=== PATIENT | male | born 1945 | race Caucasian/White ===

== ENCOUNTER 2024-05-23 08:56 | Outpatient (CLI) | payer MEDICARE | END 2024-05-23 08:57 | disposition home or self-care (01) | LOC: CSHWCC 08:56 | PROVIDERS: ATTEND Nurse Practitioner Family | DX: I87.332 Chronic venous hypertension (idiopathic) with ulcer and inflammation of left lower extremity (principal); L97.822 Non-pressure chronic ulcer of other part of left lower leg with fat layer exposed | CPT/HCPCS: 11042; 11045; 99213; G0463 ==

== ENCOUNTER 2024-06-16 10:34 | Outpatient (CLI) | payer MEDICARE | END 2024-06-16 10:35 | disposition home or self-care (01) | LOC: CSHWCC 10:34 | PROVIDERS: ATTEND Nurse Practitioner Family | DX: I87.332 Chronic venous hypertension (idiopathic) with ulcer and inflammation of left lower extremity (principal); L97.822 Non-pressure chronic ulcer of other part of left lower leg with fat layer exposed | CPT/HCPCS: 97597 ==